=== PATIENT | male | born 1995 | race Caucasian/White ===

== ENCOUNTER 2016-12-28 20:00 | Emergency (ER) | payer SELFPAY ==
[~2016-12-28] VITALS: Ht 162.6 cm; Wt 61.5 kg
[2016-12-28] MEDS ORDERED: TETANUS, DIPHTHERIA, PERTUSSIS VAC/PF 0.5ML (>7YR OLD) IM ONE (21:15)
[2016-12-28] MEDS ORDERED: IBUPROFEN 600MG TABLET PO ONE (21:15)
[2016-12-28] MEDS ORDERED: LIDOCAINE HCL/EPINEPHRINE 1%-EPI 1:100,000 20 ML VIAL MC ONE (21:15)
[2016-12-28] MEDS ORDERED: BACITRACIN ZINC OINT UDPKT TOP ONE (21:15)
[2016-12-28 23:26] VITALS: BP 125/74
== END 2016-12-28 23:32 | disposition home or self-care (01) ==
LOC: ER 20:01
DX: S01.21XA Laceration without foreign body of nose, initial encounter (principal); S01.511A Laceration without foreign body of lip, initial encounter; S09.90XA Unspecified injury of head, initial encounter; F12.10 Cannabis abuse, uncomplicated; W10.9XXA Fall (on) (from) unspecified stairs and steps, initial encounter; Y93.89 Activity, other specified; Y99.8 Other external cause status; Y92.89 Other specified places as the place of occurrence of the external cause
CPT/HCPCS: 12011; 70450; 70486; 90471; 90715; 99284; J3490; Z7610

== ENCOUNTER 2017-01-03 17:30 | Emergency (ER) | payer SELFPAY | END 2017-01-03 19:30 | disposition left against medical advice (07) | LOC: ER 19:02 | DX: Z48.02 Encounter for removal of sutures (principal) ==

== ENCOUNTER 2017-01-05 06:48 | Emergency (ER) | payer SELFPAY ==
[~2017-01-05] VITALS: Ht 160 cm; Wt 62.0 kg
[2017-01-05 06:54] VITALS: BP 120/66
== END 2017-01-05 10:30 | disposition home or self-care (01) ==
LOC: ER 06:48
DX: Z48.02 Encounter for removal of sutures (principal); F12.10 Cannabis abuse, uncomplicated
CPT/HCPCS: 99282; Z7610